=== PATIENT | female | born 1935 | race Caucasian/White ===

== ENCOUNTER 2016-04-19 11:02 | Emergency (ER) | payer OTHER ==
[2016-04-19 11:11] VITALS: TEMP 97.8; BMI 23.4
--- NOTE | 2016-04-19 11:41 | PDOC ---
History of Present Illness - General History Source: Patient Exam Limitations: No Limitations - History of Present Illness Initial Comments: 04/19/16 12:22 The patient is a 80 year old female presenting with her daughter, with a significant past medical history of COPD, mitral valve prolapse, osteoporosis and diverticulosis, who presents to the emergency department with abdominal pain for a few days. She describes her pain as localized in the right lower quadrant, mild in severity, with radiation to the lower groin. She notes that the pain is exacerbated when she walks and alleviates when she lays down. She also notes that she took Advil with minimal relief of her pain. She reports that she was recently admitted to the hospital in [place] for intractable back pain, for which she was there for 3 days. She notes that she got multiple back x-rays, that were suspicious of a hairline fracture but there was nothing definitive. She reports that she recently had a bowel movement but had been constipated for the last week or so. The patient denies chest pain, shortness of breath, headache and dizziness. Denies fever, chills, nausea, vomit, diarrhea and constipation. Denies dysuria, frequency, urgency and hematuria. Allergies: None Past surgical history: Appendectomy, Cholecystectomy Social history: No alcohol, tobacco or drug use reported PMD - Dr. Pan <Can Tyson - Last Filed: 04/19/16 12:22> <Carmela Goodrich - Last Filed: 04/19/16 19:41> - General History Source: Patient Exam Limitations: No Limitations <Blanca Santos - Last Filed: 04/22/16 09:34> - General Chief Complaint: Pain, Acute Stated Complaint: LOWER ABD PAIN Time Seen by Provider: 04/19/16 11:25 Past History <Can Tyson - Last Filed: 04/19/16 12:22> <Carmela Goodrich - Last Filed: 04/19/16 19:41> - Past Medical History Anemia: No Asthma: No Cancer: Yes (SKIN CANCER ON NOSE X 1) Cardiac Disorders: No CVA: No COPD: Yes CHF: No Dementia: No Diabetes: No GI Disorders: Yes (DIVERTICULOSIS, POLYPS) Disorders: No HTN: No Hypercholesterolemia: No Liver Disease: No Seizures: No Thyroid Disease: No Other medical history: osteopnea - Surgical History Abdominal Surgery: No Appendectomy: Yes Cardiac Surgery: No Cholecystectomy: Yes Lung Surgery: No Neurologic Surgery: No Orthopedic Surgery: No - Psycho/Social/Smoking Cessation Hx Anxiety: No Suicidal Ideation: No Smoking History: Never smoked Have you smoked in the past 12 months: No If you are a former smoker, when did you quit?: 30 YEAR Information on smoking cessation initiated: No Hx Alcohol Use: No Drug/Substance Use Hx: No Substance Use Type: None Hx Substance Use Treatment: No <Blanca Santos - Last Filed: 04/22/16 09:34> - Past Medical History Allergies/Adverse Reactions: Allergies Allergy/AdvReac Type Severity Reaction Status Date / Time No Known Allergies Allergy Verified 04/19/16 11:07 Home Medications: Ambulatory Orders Calcium Carbonate/Vitamin D3 [Calcium 500 + Vit D 400 Tablet] 1 each PO DAILY Risedronate Sodium [Actonel (Monthly)] 75 mg PO MONTHLY 06/20/12 Tiotropium Valliant [Spiriva] 1 inh IH ONCE 06/20/12 Aspirin [ASA -] 81 mg PO DAILY 04/19/16 Fluticasone/Salmeterol [Advair Hfa 115-21 Mcg Inhaler] 1 inh PO BID 04/19/16 Levofloxacin [Levaquin -] 500 mg PO DAILY #7 tablet 04/19/16 Metronidazole [Flagyl -] 250 mg PO TID #21 tablet 04/19/16 Review of Systems - Review of Systems Able to Perform ROS?: Yes Comments:: 04/19/16 12:23 GENERAL/CONSTITUTIONAL: No fever or chills. No weakness. HEAD, EYES, EARS, NOSE AND THROAT: No change in vision. No ear pain or discharge. No sore throat. CARDIOVASCULAR: No chest pain or shortness of breath RESPIRATORY: No cough, wheezing, or hemoptysis. GASTROINTESTINAL: +Abdominal pain. No nausea, vomiting, diarrhea or constipation. GENITOURINARY: No dysuria, frequency, or change in urination. MUSCULOSKELETAL: No joint or muscle swelling or pain. No neck or back pain. SKIN: No rash NEUROLOGIC: No headache, vertigo, loss of consciousness, or change in strength/ sensation. ENDOCRINE: No increased thirst. No abnormal weight change HEMATOLOGIC/LYMPHATIC: No anemia, easy bleeding, or history of blood clots. ALLERGIC/IMMUNOLOGIC: No hives or skin allergy. <Can Tyson - Last Filed: 04/19/16 12:22> *Physical Exam - Vital Signs Last Vital Signs Temp Pulse Resp BP Pulse Ox 97.8 F 61 18 150/69 95 04/19/16 11:07 04/19/16 11:07 04/19/16 11:07 04/19/16 11:07 04/19/16 11:07 - Physical Exam Comments: 04/19/16 12:23 GENERAL: Awake, alert, and fully oriented, in no acute distress HEAD: No signs of trauma, normocephalic, atraumatic EYES: PERRLA, EOMI, sclera anicteric, conjunctiva clear ENT: Auricles normal inspection, hearing grossly normal, nares patent, oropharynx clear without exudates. Moist mucosa NECK: Normal ROM, supple, no lymphadenopathy, JVD, or masses LUNGS: No distress, speaks full sentences, clear to auscultation bilaterally HEART: Regular rate and rhythm, normal S1 and S2, no murmurs, rubs or gallops, peripheral pulses normal and equal bilaterally. ABDOMEN: Soft, nontender, normoactive bowel sounds. No guarding, no rebound. No masses EXTREMITIES: Normal inspection, Normal range of motion, no edema. No clubbing or cyanosis. NEUROLOGICAL: Cranial nerves II through XII grossly intact. Normal speech, normal gait, no focal sensorimotor deficits SKIN: Warm, Dry, normal turgor, no rashes or lesions noted. <Can Tyson - Last Filed: 04/19/16 12:22> - Vital Signs Last Vital Signs Temp Pulse Resp BP Pulse Ox 97.8 F 61 18 150/69 95 04/19/16 11:07 04/19/16 11:07 04/19/16 11:07 04/19/16 11:07 04/19/16 11:07 <Carmela Goodrich - Last Filed: 04/19/16 19:41> - Vital Signs Last Vital Signs Temp Pulse Resp BP Pulse Ox 97.8 F 61 18 150/69 95 04/19/16 11:07 04/19/16 11:07 04/19/16 11:07 04/19/16 11:07 04/19/16 11:07 <Blanca Santos - Last Filed: 04/22/16 09:34> ED Treatment Course - LABORATORY CBC & Chemistry Diagram: 04/19/16 11:50 04/19/16 11:50 - ADDITIONAL ORDERS Additional order review: 04/19/16 11:50 RBC 4.13 MCV 92.0 MCHC 33.3 RDW 12.6 MPV 9.1 Neutrophils % 67.0 Lymphocytes % 21.3 Monocytes % 9.3 Eosinophils % 1.9 Basophils % 0.5 <Can Tyson - Last Filed: 04/19/16 12:22> - LABORATORY CBC & Chemistry Diagram: 04/19/16 11:50 04/19/16 11:50 - ADDITIONAL ORDERS Additional order review: Laboratory Results 04/19/16 04/19/16 13:00 11:50 Sodium 143 Potassium 3.7 Chloride 104 Carbon Dioxide 28 Anion Gap 11 BUN 11 Creatinine 0.8 Creat Clearance w eGFR > 60 Random Glucose 82 Calcium 8.6 Total Bilirubin 1.1 H AST 20 ALT 57 Alkaline Phosphatase 62 Total Protein 7.0 Albumin 4.0 Total Amylase 50 Lipase 109 Urine Color Yellow Urine Appearance Clear Urine pH 5.0 Ur Specific [place] 1.019 Urine Protein Negative Urine Glucose (UA) Negative Urine Ketones 2+ H Urine Blood Negative Urine Nitrite Negative Urine Bilirubin Negative Urine Urobilinogen 2.0 e.u/dl H Ur Leukocyte Esterase Negative 04/19/16 11:50 RBC 4.13 MCV 92.0 MCHC 33.3 RDW 12.6 MPV 9.1 Neutrophils % 67.0 Lymphocytes % 21.3 Monocytes % 9.3 Eosinophils % 1.9 Basophils % 0.5 - Medications Given in the ED: ED Medications Discontinued Medications Generic Name Dose Route Start Last Admin Trade Name Freq PRN Reason Stop Dose Admin Sodium Chloride 1,000 mls @ 125 mls/hr 04/19/16 11:42 04/19/16 12:03 Normal Saline - IV 04/19/16 19:41 125 mls/hr ASDIR STA Administration <Carmela Goodrich - Last Filed: 04/19/16 19:41> - LABORATORY CBC & Chemistry Diagram: 04/19/16 11:50 04/19/16 11:50 <Blanca Santos - Last Filed: 04/22/16 09:34> Medical Decision Making - Medical Decision Making 04/19/16 11:40 A portion of this note was documented by scribe services under my direction. I have reviewed the details of the note, within reason, and agree with the documentation with the following case summary and management plan written by me. Nursing documentation reviewed and incorporated into medical decision making 80- year-old female who presents emergency department upon the recommendation of her primary care physician due to abdominal pain. Patient states she was recently admitted to an outside hospital due to severe back pain. He had CTs of the lumbar spine and pelvis which showed no acute fracture. She was discharged 24 hours ago, return to the [facility] and on time. She states she has had right lower abdominal pain for the past 24 hours No fevers no chills Worse with ambulating No abdominal distention No diarrhea Pt has been constipated actually Pain worsens when walking will do basic labs will do CT Will re assess Laboratory Tests 04/19/16 04/19/16 04/19/16 11:50 11:50 13:00 WBC 8.9 Hgb 12.6 Hct 38.0 Plt Count 212 BUN 11 Creatinine 0.8 Urine Blood Negative Urine Nitrite Negative Ur Leukocyte Esterase Negative CT still pending Pt signed out to Dr Goodrich <Blanca Santos - Last Filed: 04/22/16 09:34> *DC/Admit/Observation/Transfer - Attestations Scribe Attestion: 04/19/16 12:23 Documentation prepared by Can Tyson, acting as expert medical writer for Blanca Santos MD. <Can Tyson - Last Filed: 04/19/16 12:22> <Carmela Goodrich - Last Filed: 04/19/16 19:41> <Blanca Santos - Last Filed: 04/22/16 09:34> Diagnosis at time of Disposition: Hydronephrosis Qualifiers: Hydronephrosis type: other Qualified Code(s): N13.39 - Other hydronephrosis Diverticulitis Qualifiers: Diverticulitis site: unspecified part of intestinal tract Diverticulitis bleeding: without bleeding Diverticulitis complication: without perforation or abscess Qualified Code(s): K57.92 - Diverticulitis of intestine, part unspecified, without perforation or abscess without bleeding - Discharge Dispostion Disposition: HOME Condition at time of disposition: Stable - Prescriptions Prescriptions: Metronidazole [Flagyl -] 250 mg PO TID #21 tablet Levofloxacin [Levaquin -] 500 mg PO DAILY #7 tablet - Referrals Referrals: Kp Pan MD [Primary Care Provider] - - Patient Instructions Printed Discharge Instructions: DI for Diverticulitis Additional Instructions: please roller picker your prescriptions at the [facility] in [place] Follow up with your doctor this week
[2016-04-19] MEDS ORDERED: SODIUM CHLORIDE 1,000 ML IV STA (11:42)
[2016-04-19 12:15] LABS: BASOPHIL 0.5 % (0-2.0); EOSINOPHIL 1.9 % (0-4.5); MCH 30.6 pg (25.7-33.7); MCHC 33.3 g/dl (32.0-36.0); MEAN PLT VOLUME 9.1 fl (7.5-11.1); PLATELET COUNT 212 K/MM3 (134-434); RDW 12.6 % (11.6-15.6); WHITE BLOOD COUNT 8.9 K/mm3 (4.0-10.0)
[2016-04-19 12:37] LABS: ALK PHOS 62 U/L (45-117); AMYLASE 50 U/L (25-115); ANION GAP 11 (8-16); BILIRUBIN,TOTAL 1.1 mg/dL (0.2-1.0); CALCIUM 8.6 mg/dL (8.5-10.1); CO2 28 mmol/L (21-32); CREATININE 0.8 mg/dL (0.55-1.02); GLUCOSE,RANDOM 82 mg/dL (74-106); SGOT/AST 20 U/L (15-37); SGPT/ALT 57 U/L (12-78)
[2016-04-19 15:15] LABS: URINE APPEARANCE CLEAR; URINE BILIRUBIN NEGATIVE (NEGATIVE); URINE BLOOD NEGATIVE (NEGATIVE); URINE COLOR YELLOW; URINE GLUCOSE (UA) NEGATIVE (NEGATIVE); URINE KETONE 2+ (NEGATIVE); URINE LEUK ESTERASE NEGATIVE (NEGATIVE); URINE NITRITE NEGATIVE (NEGATIVE); URINE PROTEIN NEGATIVE (NEGATIVE); URINE UROBILINOGEN 2.0 E.U/dl E.U./dl (0.2-1.0)
[2016-04-19] MEDS ORDERED: LEVOFLOXACIN 500 MG TABLET (FP) PO ONE (19:35)
[2016-04-19] MEDS ORDERED: LEVOFLOXACIN 500 MG TABLET (FP) ONE (19:54)
[2016-04-19 19:58] VITALS: BP 149/72; PULSE 75
== END 2016-04-19 19:59 | disposition home or self-care (01) ==
LOC: JER 11:02
PROC: 3E0337Z Introduction of Electrolytic and Water Balance Substance into Peripheral Vein, Percutaneous Approach (ICD-10-PCS; principal; 2016-04-19)
DX: K57.92 Diverticulitis of intestine, part unspecified, without perforation or abscess without bleeding (principal); N13.39 Other hydronephrosis; J44.9 Chronic obstructive pulmonary disease, unspecified
CPT/HCPCS: 36415; 74177-TC; 80053; 81003; 82150; 83690; 85025; 87086; 96360; 96361; 99285-25